=== PATIENT | male | born 1955 | race Caucasian/White ===

== ENCOUNTER 2023-10-09 13:29 | Emergency (ER) | payer MEDICARE, SELFPAY ==
[2023-10-09 13:42] VITALS: BP 135/91; PULSE 64; RESP 16; TEMP 36.6; O2SAT 97; BMI 27.3
[2023-10-09 14:39] VITALS: BP 134/85; PULSE 75; O2SAT 98
--- NOTE | 2023-10-09 14:42 | CA_ITS ---
FINAL REPORT TECHNIQUE: Color Doppler, duplex Doppler and compression sonography of the left lower extremity deep venous systems was performed. CLINICAL HISTORY: left calf pain and swelling x 5-6 days, denies trauma, pain in posterior knee LLE. FINDINGS: There is no evidence of deep venous thrombosis from the level of the groin to the calf. The veins are patent and compressible. IMPRESSION: No evidence of deep venous thrombosis left lower extremity. Authenticated and ERN
--- NOTE | 2023-10-09 14:49 | PC.NURSE ---
DR ELDRIDGE AT BEDSIDE
[2023-10-09 15:46] LABS: Basophils % 0.6 % (0.1-2.0); Eosinophils # 0.2 K/mm3 (0.0-0.4); Eosinophils % 2.7 % (0.1-12.0); Hematocrit 48.1 % (42.0-52.0); Hemoglobin 16.2 g/dL (14.1-18.0); Lymphocytes # 2.1 K/mm3 (0.7-4.5); Lymphocytes % 34.1 % (10-50); Mean Corpuscular HGB Conc 33.6 g/dL (31.8-35.4); Mean Corpuscular Volume 92.4 fl (80-94); Mean Platelet Volume 7.8 fl (7.4-10.4); Monocytes # 0.5 K/mm3 (0.1-1.0); Monocytes % 7.3 % (1.7-9.3); Neutrophils # 3.4 K/mm3 (1.8-7.8); Neutrophils % 55.2 % (37.0-80.0); Platelet Count 252 K/mm3 (142-424); Red Blood Count 5.21 M/mm3 (4.60-6.20); Red Cell Distribution Width 12.6 % (11.5-17.5); White Blood Count 6.2 K/mm3 (4.8-10.8)
[2023-10-09 15:47] LABS: Chloride 104 mmol/L (98-107); Potassium 4.1 mmoL/L (3.5-5.1); Sodium 139 mmol/L (136-145)
[2023-10-09 15:50] LABS: Anion Gap 10.1 mEq/L (5-15); Blood Urea Nitrogen 23 mg/dl (9-20); Calcium 8.9 mg/dl (8.4-10.2); Carbon Dioxide 29 mmol/L (22.0-30.0); Creatinine Clearance Estimated 83 mL/min (50-200); Estimated Glomerular Filt Rate 74 ml/min (>60); GFR (African American) 90 ML/MIN (>60); Glucose 90 mg/dl (74-100)
--- NOTE | 2023-10-09 15:58 | HMH.EDGENADL ---
Discharge Plan Disposition Patient Disposition: Home, Self-Care Condition: Good Referrals Follow up/Referrals: Tiffanie Conde APRN [Primary Care Provider] - See instructions Activity Restrictions/Add. Instructions Additional Instructions/Restrictions: You have been evaluated in the ED for your complaints. You may follow-up with your PCP in the next 3 to 5 days. Please return to ED for any new or worsening symptoms. As discussed, I recommend ibuprofen 800 mg every 6 hours as needed for pain. You may continue to take naproxen however do not take naproxen and ibuprofen at the same time. Clinical Impressions Clinical Impression: Left leg swelling, Popliteal pain Discharge ED Provider: Serge Sigala General Adult HPI General Chief complaint: Extremity Injury, Lower Stated complaint: Pain and swelling in left leg Time Seen by Provider: 10/09/23 14:24 Mode of Arrival: Ambulatory Source of Information: Patient Limitations: No Limitations Description of Symptoms (Recalled from ER Triage Doc. by RN): Pt. c/o left leg pain in the calf and behind his knee for the last 4-5 days. He states his calf is swollen, denies redness and warmth. Denies injury. History of Present Illness HPI narrative: 68-year-old male with no pertinent past medical history presents today for evaluation concerning pain and swelling in his left popliteal region and left calf over the past 6 days. Denies any associated injuries however he does report that he is a runner and last ran about 2 weeks ago. Has continued to ambulate however with some pain in the popliteal region. Denies having any fevers, chills, chest pain, shortness of breath, nausea, vomiting or any other associated symptoms at this time. He has been taking naproxen with minimal relief. Related Data Allergies Allergy/AdvReac Type Severity Reaction Status Date / Time No Known Allergies Allergy Verified 10/09/23 14:42 [facility] Disclaimer: The information contained in this section may have been updated after the patient was seen, as this information can be updated by other users. Social History Smoking Status: Never smoker alcohol intake: never current occupational status: retired Travel in the last 8 weeks: None ROS Obtained: Yes All systems reviewed & no additional complaints except as documented Physical Exam General General appearance: alert and in no apparent distress Head Head exam: atraumatic and normocephalic Eye Eye exam: Present normal appearance, PERRL and EOMI ENT ENT exam: Present normal oropharynx and mucous membranes moist Neck Neck exam: Present full ROM; Absent meningismus Respiratory Respiratory exam: Absent respiratory distress, wheezes, stridor or accessory muscle use Cardiovascular Cardiovascular exam: Present normal rhythm Abdominal Exam Abdominal exam: Present soft; Absent distention, tenderness, guarding, rebound or rigidity Extremities Exam Extremities exam: Present other (Left lower extremity swelling, asymmetrical in comparison to the right. Mild swelling along the popliteal region with minimal tenderness to palpation.) Neurological Exam Neurological exam: Present alert, oriented X3 and CN II-XII intact; Absent motor sensory deficit Psychiatric Psychiatric exam: Present normal affect and normal mood Skin Skin exam: Present warm and dry Medical Decision Making Medical Records Medical records reviewed: Yes I reviewed the patient's medical records. Bill Inquiry Pt receiving controlled substance: No Bill was queried for this patient: No Vital Signs: 10/09/23 13:42 10/09/23 14:39 Temperature 97.8 F Temperature Source Oral Pulse Rate 75 Pulse Rate [Right Brachial] 64 Respiratory Rate 16 Blood Pressure 134/85 Blood Pressure [Right Arm] 135/91 H Blood Pressure Mean [Right Arm] 105 Blood Pressure Source [Right Arm] Automatic Cuff Blood Pressure Position [Right Arm] Sitting 02 Sat by Pulse Oximetry 97 98 Oxygen Delivery Method Room Air Room Air Lab Data Lab Results 10/09/23 15:30: WBC 6.2, RBC 5.21, Hgb 16.2, Hct 48.1, MCV 92.4, MCH 31.0, MCHC 33.6, RDW 12.6, Plt Count 252, MPV 7.8, Neut % (Auto) 55.2, Lymph % (Auto) 34.1, [place] % (Auto) 7.3, Eos % (Auto) 2.7, Baso % (Auto) 0.6, Neut # (Auto) 3.4, Lymph # (Auto) 2.1, [place] # (Auto) 0.5, Eos # (Auto) 0.2, Baso # (Auto) 0.0, Sodium 139, Potassium 4.1, Chloride 104, Carbon Dioxide 29, Anion Gap 10.1, BUN 23 H, Creatinine 1.00, Estimated Creat Clear 83, Estimated GFR 74, Est GFR ( Amer) 90, Glucose 90, Calcium 8.9 10/09/23 15:30 10/09/23 15:30 Orders (Tests/Meds): ED MEDICATIONS Discontinued Medications Generic Name Dose Route Start Last Admin Trade Name Larisa PRAnalisa Reason Stop Dose Admin Ibuprofen 800 mg 10/09/23 14:53 10/09/23 14:57 Ibuprofen 800 Mg Tablet PO 10/09/23 14:54 Not Given ONCE ONE Ibuprofen 800 mg 10/09/23 14:57 10/09/23 14:59 Ibuprofen 400 Mg Tablet PO 10/09/23 14:58 Not Given ONCE ONE ORDERS Category Date Time Status Basic Metabolic Panel Stat Lab 10/09/23 15:30 Completed Complete Blood Count Auto Diff Stat Lab 10/09/23 15:30 Completed CA venous doppler LE LT Stat Y 10/09/23 14:42 Completed Medical Decision Narrative: 68-year-old male with no pertinent past medical history presents today for evaluation concerning pain and swelling in his left popliteal region and left calf over the past 6 days. Denies any associated injuries however he does report that he is a runner and last ran about 2 weeks ago. Has continued to ambulate without difficulty. Has been taking naproxen to assist with his pain. On assessment he was hemodynamically stable and in no acute distress. He did have mild swelling along the popliteal region on the left. Minimal tenderness to palpation. His left lower extremity from the knee down was more swollen in comparison to the right. Palpable DP pulses. No erythematous skin changes. Chest clear to auscultation bilaterally. Other physical exam findings unremarkable. Differential diagnoses include but not limited to DVT, popliteal cyst, musculoskeletal pain, among others. CBC and CMP today were nonactionable. Venous duplex of the left lower extremity did not show any signs consistent with DVT. I did use bedside ultrasound as well on my assessment and I did not note any cysts or cellulitic changes. On reassessment patient tianna medically stable and in no acute distress. Discussed his ED workup and results and current plan to discharge home with supportive care measures. Will provide him with an Baldo wrap to further assist. I did recommend ibuprofen for pain however he states that he will continue to take naproxen. Provided with return ED precautions and instructions concerning PCP follow-up. Verbalized understanding and agreement. Subsequent discharged home hemodynamically stable and in no acute distress. Critical Care Critical Care Time Critical Care Time: No
[2023-10-09 16:21] VITALS: BP 133/84; PULSE 59; RESP 16; TEMP 36.6; O2SAT 96
== END 2023-10-09 16:23 | disposition home or self-care (01) ==
PROVIDERS: Emergency Provider Emergency Medicine; PCP Nurse Practitioner
DX: M79.662 Pain in left lower leg (principal); R22.42 Localized swelling, mass and lump, left lower limb
CPT/HCPCS: 80048; 85025; 93971; 99284

== ENCOUNTER 2023-10-23 15:44 | Outpatient (CLI) | payer MEDICARE, SELFPAY | END 2023-10-23 23:59 | LOC: RT 15:45 | PROVIDERS: PCP Nurse Practitioner; Visit Provider Nurse Practitioner Family | DX: M79.662 Pain in left lower leg (principal); R22.42 Localized swelling, mass and lump, left lower limb | CPT/HCPCS: 93971 ==

== ENCOUNTER 2023-12-15 13:36 | Outpatient (CLI) | payer MEDICARE, SELFPAY ==
--- NOTE | 2023-12-15 13:37 | MR_ITS ---
FINAL REPORT CLINICAL HISTORY: Lt Knee Pain. anterior knee pain. stiffness in knee. COMPARISON: None FINDINGS: Multi planar MR imaging was performed of the right knee. The anterior and posterior cruciate ligaments are intact. The quadriceps and patellar tendons are intact. There is linear signal in the posterior horn of the medial meniscus which extends to the margin, consistent with a tear. There is also linear signal in the anterior horn of the lateral meniscus, which also extends to the margin, consistent with a tear. The medial and lateral collateral ligaments appear intact. The medial and lateral retinacula appear intact. A small joint effusion is present. There is no evidence of bone marrow edema or osteochondral defect. There is a small popliteal cyst present which measures 7 cm in the craniocaudal dimension. Prepatellar mild soft tissue edema is noted. IMPRESSION: Linear tear posterior horn medial meniscus, and linear tear anterior horn of the lateral meniscus. Small joint effusion, small popliteal cyst, and mild prepatellar soft tissue edema are present. Reviewed, Interpreted and Dictated by Donnie Betancourt MD Transcribed by Basia Mansfield Authenticated and [facility]
== END 2023-12-15 23:59 | disposition home or self-care (01) ==
LOC: RAD 13:37
PROVIDERS: PCP Physician Assistant; Visit Provider Orthopaedic Surgery
DX: M71.22 Synovial cyst of popliteal space [Baker], left knee (principal)
CPT/HCPCS: 73721

== ENCOUNTER 2024-06-08 10:00 | Outpatient (RCR) | payer MEDICARE, SELFPAY | END 2024-06-14 16:53 | disposition home or self-care (01) | LOC: PT 10:00 | PROVIDERS: Visit Provider Nurse Practitioner | DX: M25.562 Pain in left knee (principal) | CPT/HCPCS: 97110; 97163; 97530 ==

== ENCOUNTER 2025-07-05 18:31 | Emergency (ER) | payer MEDICARE, SELFPAY ==
[2025-07-05 19:05] VITALS: BP 150/77; PULSE 60; RESP 18; TEMP 36.8; O2SAT 100; BMI 28.1
--- NOTE | 2025-07-05 20:20 | CT_ITS ---
PROCEDURE INFORMATION: Exam: CT Chest Without Contrast; Diagnostic Exam date and time: 07/05/2025 8:48 PM Age: 70 years old Clinical indication: Injury or trauma; Fall; Additional info: Fall left-sided rib pain TECHNIQUE: Imaging protocol: Diagnostic computed tomography of the chest without contrast. Radiation optimization: All CT scans at this facility use at least one of these dose optimization techniques: automated exposure control; mA and/or kV adjustment per patient size (includes targeted exams where dose is matched to clinical indication); or iterative reconstruction. COMPARISON: CT THORACIC SPINE WO CON 07/05/2025 8:46 PM FINDINGS: Lungs: Unremarkable. No consolidation. No masses. Pleural spaces: Unremarkable. No pneumothorax. No pleural effusion. Heart: The heart is normal size with coronary artery and valvular calcifications. Lymph nodes: Unremarkable. No enlarged lymph nodes. Vasculature: Unremarkable. No aortic aneurysm. Bones/joints: There is an old healed fracture of the lateral right 7th rib. No acute fractures. Soft tissues: There is bilateral gynecomastia. IMPRESSION: No acute injury. Gynecomastia.
--- NOTE | 2025-07-05 20:20 | CT_ITS ---
PROCEDURE INFORMATION: Exam: CT Thoracic Spine Without Contrast Exam date and time: 07/05/2025 8:46 PM Age: 70 years old Clinical indication: Injury or trauma; Fall; Additional info: Fall midthoracic back pain left rib pain TECHNIQUE: Imaging protocol: Computed tomography of the thoracic spine without contrast. Radiation optimization: All CT scans at this facility use at least one of these dose optimization techniques: automated exposure control; mA and/or kV adjustment per patient size (includes targeted exams where dose is matched to clinical indication); or iterative reconstruction. COMPARISON: CT CERVICAL SPINE WO CON 07/05/2025 8:44 PM FINDINGS: Bones/joints: There is a mild right convex scoliosis centered in the midthoracic spine with moderate degenerative changes throughout the spine. There is an old compression fracture of the superior endplate of L2. Otherwise normal alignment. No acute fractures. Soft tissues: Unremarkable. IMPRESSION: No acute injury.
--- NOTE | 2025-07-05 20:20 | CT_ITS ---
PROCEDURE INFORMATION: Exam: CT Head Without Contrast Exam date and time: 07/05/2025 8:43 PM Age: 70 years old Clinical indication: Injury or trauma; Fall; Additional info: Fall, head trauma TECHNIQUE: Imaging protocol: Computed tomography of the head without contrast. Radiation optimization: All CT scans at this facility use at least one of these dose optimization techniques: automated exposure control; mA and/or kV adjustment per patient size (includes targeted exams where dose is matched to clinical indication); or iterative reconstruction. COMPARISON: No relevant prior studies available. FINDINGS: Brain: Age-related involutional changes and chronic microvascular ischemic disease. No evidence for acute transcortical infarct. No mass effect or midline shift. No extra-axial collection. No acute intracranial hemorrhage. Basal cisterns are patent. Cerebral ventricles: No ventriculomegaly. Paranasal sinuses: Visualized sinuses are unremarkable. No fluid levels. Mastoid air cells: Visualized mastoid air cells are well aerated. Bones: Unremarkable. No acute fracture. Soft tissues: Unremarkable. IMPRESSION: No evidence for acute transcortical infarct, acute intracranial hemorrhage, or mass effect.
--- NOTE | 2025-07-05 20:20 | CT_ITS ---
PROCEDURE INFORMATION: Exam: CT Cervical Spine Without Contrast Exam date and time: 07/05/2025 8:44 PM Age: 70 years old Clinical indication: Injury or trauma; Fall TECHNIQUE: Imaging protocol: Computed tomography of the cervical spine without contrast. Radiation optimization: All CT scans at this facility use at least one of these dose optimization techniques: automated exposure control; mA and/or kV adjustment per patient size (includes targeted exams where dose is matched to clinical indication); or iterative reconstruction. COMPARISON: CT HEAD/BRAIN WO CON 07/05/2025 8:43 PM FINDINGS: Bones: No acute fracture or traumatic subluxation. No spondylolisthesis. The atlantooccipital and atlantoaxial articulations are intact. Occipital condyles are intact. Facet joint alignments are maintained. Age-related degenerative disc disease. Multilevel degenerative changes of the cervical spine. Lungs: Lung apices are normal. Soft tissues: No prevertebral soft tissue swelling. IMPRESSION: No acute fracture or traumatic subluxation.
--- NOTE | 2025-07-05 20:21 | ED_ITS ---
<Statement entered by Murali Bello MD - 07/06/25 10:28> I was consulted by the ANTONIO, and we discussed the complexity of the problems being addressed. I approve the treatment and management plan for this patient's care in the emergency department, thus performing a substantive portion of the medical decision making. Murali Bello MD Discharge Plan Disposition Patient Disposition: Home, Self-Care Condition: Good Prescriptions Prescriptions: No Action No Known Home Medications Referrals Follow up/Referrals: Melanie Conde PA [Primary Care Provider, Medical] - See instructions Activity Restrictions/Add. Instructions Additional Instructions/Restrictions: Please follow-up with your family doctor in the upcoming days/weeks to recheck your blood work, especially your kidney labs. Please utilize ibuprofen Tylenol rest ice as needed for symptomatic relief. Please return to the emergency department any worsening signs or symptoms. Clinical Impressions Clinical Impression: Fall, Soft tissue injury, CHI (closed head injury) Instructions Patient Instructions: DI for Blunt Trauma, How to Prevent Falls, DI for Closed Head Injury Print Language Print Language: Swedish Discharge ED Provider: Murali Bello General Adult HPI General Chief complaint: PAIN Stated complaint: AO 11-5 fell out truck, hit back and head Time Seen by Provider: 07/05/25 20:14 Mode of Arrival: Ambulatory Source of Information: Patient Description of Symptoms (Recalled from ER Triage Doc. by RN): patient presents to the ED for a fall from a truck bed. he was loading tile that was a little wet and slipped on the corner of one, falling backwards off the tailgate. the patient hit his head, denies LOC but does endorse dizziness immediately after the fall. paitene cmplaining of pain in his upper back and slightly in his neck. the patient has full ROM in his neck. History of Present Illness HPI narrative: 70-year-old male presents the emergency department for a fall that occurred 2 to 3 hours ago, patient states that he was in his truck bed on the tailgate attempting to pull some equipment out, when he slid backwards and struck his head, no LOC, admits to midthoracic back pain and left-sided rib pain, patient states that he was able to self ambulate and was not down long, states he did have some dizziness , but this is subsided, denies any fever or chills, denies any presyncopal event, denies any chest pain, does admit to some left rib pain with deep inspiration, denies any abdominal pain nausea vomiting constipation diarrhea no urinary symptomatology, does have some mid thoracic back pain denies any neck pain denies any radicular type symptomatology, denies any lower back pain, denies any numbness tingling saddle anesthesia no urinary bladder or bowel dysfunction. Patient has no other real relevant past medical history takes no other medications daily at home with the exception of NSAIDs as needed. Initial triage vitals are unremarkable, denies any alcohol tobacco or drug use. Please note that above description of symptoms, in this electronic medical record under categorization of recalled from ER triage doctor by RN are reflective of an initial nursing assessment, however, is not reflective of my full history and physical exam that was personally taken and clarified. Consequentially, this preceding description of symptoms, which may include the patient's categorized chief complaint in the EMR, do not reflect my personal clinical impression, and the ultimate description of history of present illness and patient stated complaints should be deferred to this section of the note. Unless stated otherwise or congruent with this section of the note, additional signs, symptoms, or incongruence should be interpreted as inaccurate with my clinical impression. Onset (ago): hour(s) Related Data Home Medications ?Medication ?Instructions ?Recorded ?Confirmed No Known Home Medications 11/10/2310/24 Allergies Allergy/AdvReac Type Severity Reaction Status Date / Time No Known Allergies Allergy Verified 12/31/23 14:11 [facility] Disclaimer: The information contained in this section may have been updated after the patient was seen, as this information can be updated by other users. Social History Smoking Status: Former smoker alcohol intake: never current occupational status: retired Travel in the last 8 weeks?: None Have you lived/traveled outside [place] in past 30 days?: No Contact w/someone who lives/traveled outside US past 30 days?: No Exposure to someone with infectious disease in past 14 days?: No Do you have a fever (greater than 100.4 F or 38 C)?: No Have you tested positive for COVID-19?: No Exposed to someone with COVID-19 in past 14 days?: No Do you have a sore throat?: No Do you have a cough?: No Do you have any weakness?: No Do you have any diarrhea?: No Are you experiencing any unusual bleeding?: No Do you have any muscle aches/pain?: No Do you have any abdominal pain?: No Are you experiencing loss of taste or smell?: No Other Medical History Have you received the Pneumonia Vaccine: No ROS Obtained: Yes All systems reviewed & no additional complaints except as documented Physical Exam General General appearance: alert and in no apparent distress Head Head exam: atraumatic and normocephalic Eye Eye exam: Present PERRL and EOMI ENT ENT exam: Present mucous membranes moist Neck Neck exam: Present normal inspection Chest Chest inspection: Present normal inspection, symmetric chest wall rise, tenderness and other (Tenderness over the left chest wall, no obvious signs of ecchymosis no crepitus, no obvious deformity or injury) Respiratory Respiratory exam: Present normal lung sounds bilaterally; Absent respiratory distress, wheezes or stridor Cardiovascular Cardiovascular exam: Present regular rate and normal rhythm Abdominal Exam Abdominal exam: Present soft; Absent tenderness, guarding, rebound or rigidity Extremities Exam Extremities exam: Present normal inspection Back Exam Back exam: Present normal inspection, full ROM, tenderness and paraspinal tenderness; Absent vertebral tenderness Comment: Negative C-spine paraspinal and spinal tenderness palpation, mild T-spine paraspinal tenderness palpation, negative spinal tenderness palpation, no lower lumbar paraspinal or spinal tenderness palpation, no obvious step-offs or deformities Neurological Exam Neurological exam: Present alert, oriented X3 and other (Moves extremities to command no focal neurological deficit.) Psychiatric Psychiatric exam: Present normal affect Skin Skin exam: Present warm and dry Medical Decision Making Medical Records Medical records reviewed: Yes I reviewed the patient's medical records. Screening: Per USPSTF and CDC recommendations, given the prevalence of disease in our region, it is our hospital?s policy to screen for HIV and viral Hepatitis for all patients aged 18 and over and those with ongoing risk factors. Bill Inquiry Pt receiving controlled substance: No Bill was queried for this patient: No Vital Signs: 07/05/25 19:05 07/05/25 21:00 07/05/25 21:15 Temperature 98.2 F Temperature Source Oral Pulse Rate 66 64 Pulse Rate [Right Radial] 60 Respiratory Rate 18 Blood Pressure 142/86 H 127/82 Blood Pressure [Right Arm] 150/77 H Blood Pressure Mean [Right Arm] 101 Blood Pressure Source [Right Arm] Automatic Cuff Blood Pressure Position [Right Arm] Sitting 02 Sat by Pulse Oximetry 100 99 97 Oxygen Delivery Method Room Air Lab Data Lab results reviewed: Yes I reviewed the patient's lab results. Lab Results 07/05/25 20:26: WBC 11.9 H, RBC 5.09, Hgb 16.2, Hct 46.6, MCV 91.6, MCH 31.8 H, MCHC 34.8, RDW 11.4 L, Plt Count 270, MPV 9.5, Neut % (Auto) 82.6 H, Lymph % (Auto) 11.4, [place] % (Auto) 4.2, Eos % (Auto) 1.0, Baso % (Auto) 0.3, Neut # (Auto) 9.8 H, Lymph # (Auto) 1.4, [place] # (Auto) 0.5, Eos # (Auto) 0.1, Baso # (Auto) 0.0, Sodium 141, Potassium 4.3, Chloride 100, Carbon Dioxide 32 H, Anion Gap 13.3, BUN 20, Creatinine 1.30 H, Estimated Creat Clear 62, Estimated GFR 54 L, Est GFR ( Amer) 66, Glucose 86, Calcium 9.5, Total Bilirubin 1.3, AST 56, ALT 35, Alkaline Phosphatase 91, Total Protein 8.5 H, Albumin 5.5 H, Globulin 3.0, Albumin/Globulin Ratio 1.8 07/05/25 20:26 07/05/25 20:26 Orders (Tests/Meds): ORDERS Category Date Time Status CT cervical spine wo con Stat Cat Scan 07/05/25 20:[address] chest wo con Stat Cat Scan 07/05/25 20:[address] head/brain wo con Stat Cat Scan 07/05/25 20:[address] thoracic spine wo con Stat Cat Scan 07/05/25 20:20 Completed Complete Blood Count Auto Diff Stat Lab 07/05/25 20:26 Completed Comprehensive Metabolic Panel Stat Lab 07/05/25 20:26 Completed Medical Decision Narrative: 70-year-old male presents the emergency department for a fall with left-sided rib pain/back pain striking head, differential diagnosis include but not limited to acute SDH, traumatic SAH, closed head injury, cervicalgia, rib fractures, costochondritis, other soft tissue injury, C-spine fracture, thoracic myofascial strain among others. I discussed this patient's case with the attending Dr. Linares Will obtain basic laboratory studies, CT head without contrast, CT cervical spine without contrast, CT chest without contrast, CT thoracic spine without contrast to further evaluation CBC noted for leukocytosis at 11.9, otherwise unremarkable. CMP is notable for mild acute kidney injury at 1.3 creatinine, otherwise unremarkable. I reviewed the patient's thoracic CT without contrast along the corresponding radiologic report, no acute injury. I reviewed the patient's CT head without contrast along the corresponding radiologic report, no evidence for acute transcortical infarction acute intracranial hemorrhage or mass effect. I reviewed The patient's chest CT without contrast on the corresponding radiologic report. No acute injury, gynecomastia. I reviewed the patient's CT cervical spine without contrast and with corresponding radiologic report, no acute fracture or traumatic subluxation. Reexamination of the patient at approximately 9:30 PM, patient resting comfortably in bed, I discussed all results with him at the bedside, patient is GCS of 15 remained hemodynamically stable that his time in the emergency department, recommend follow-up with PCP for repeat laboratory studies in the upcoming days/weeks, I recommend ibuprofen Tylenol rest as needed for symptomatic relief. Patient voiced understanding and agreement with current treatment plan/discharge plan. Strict ED return precautions were discussed with the patient. Patient voiced understanding. Critical Care Critical Care Time Critical Care Time: No
[2025-07-05 20:37] LABS: Hematocrit 46.6 % (42.0-52.0); Hemoglobin 16.2 g/dL (14.1-18.0); Immature Granulocytes % 0.5 %; Mean Corpuscular HGB Conc 34.8 g/dL (31.8-35.4); Mean Corpuscular Hemoglobin 31.8 pg (27.0-31.2); Mean Corpuscular Volume 91.6 fl (80-94); Nucleated Red Blood Cells % 0 %; Platelet Count 270 K/mm3 (142-424); Red Blood Count 5.09 M/mm3 (4.60-6.20); Red Cell Distribution Width-SD 38.7 fL; White Blood Count 11.9 K/mm3 (4.8-10.8)
[2025-07-05 20:45] LABS: Alanine Aminotransferase 35 U/L (12-78); Alkaline Phosphatase 91 U/L (38-126); Aspartate Amino Transferase 56 U/L (17-59); Bilirubin,Total 1.3 mg/dl (0.2-1.3); Blood Urea Nitrogen 20 mg/dl (9-20); Carbon Dioxide 32 mmol/L (22.0-30.0); Creatinine Clearance Estimated 62 mL/min (50-200); Creatinine,Serum 1.30 mg/dl (0.66-1.25); Estimated Glomerular Filt Rate 54 ml/min (>60); GFR (African American) 66 ML/MIN (>60); Total Protein,Serum 8.5 g/dl (6.3-8.2)
[2025-07-05 20:46] LABS: Calcium 9.5 mg/dl (8.4-10.2); Glucose 86 mg/dl (74-100)
[2025-07-05 20:55] LABS: Albumin Level 5.5 g/dl (3.5-5.0); Albumin/Globulin Ratio 1.8 (1.1-1.8); Anion Gap 13.3 mEq/L (5-15); Chloride 100 mmol/L (98-107); Globulin 3.0 g/dL (1.3-3.2); Potassium 4.3 mmoL/L (3.5-5.1); Sodium 141 mmol/L (136-145)
[2025-07-05 21:00] VITALS: BP 142/86; PULSE 66; O2SAT 99
[2025-07-05 21:15] VITALS: BP 127/82; PULSE 64; O2SAT 97
[2025-07-05 21:41] VITALS: BP 128/74; PULSE 74; RESP 16; TEMP 36.6; O2SAT 98
== END 2025-07-05 21:46 | disposition home or self-care (01) ==
PROVIDERS: Physician Assistant; Emergency Provider Student in an Organized Health Care Education/Training Program; PCP Physician Assistant
DX: S09.90XA Unspecified injury of head, initial encounter (principal); R07.1 Chest pain on breathing; M54.2 Cervicalgia; M54.6 Pain in thoracic spine; W17.89XA Other fall from one level to another, initial encounter
CPT/HCPCS: 70450; 71250; 72125; 72128; 80053; 85025; 99283; 99285